=== PATIENT | male | born 1950 | race Caucasian/White ===

== ENCOUNTER 2017-11-12 03:15 | Emergency (ER) | payer MEDICARE ==
[2017-11-12] MEDS ORDERED: AMIODARONE 150MG/100ML BOLUS 150 MG/100 ML ML IV ONE (03:27)
[2017-11-12] MEDS ORDERED: LIDOCAINE IVP ONE (03:28)
--- NOTE | 2017-11-12 03:35 | Emergency Department Record ---
History of Present Illness - General Chief Complaint: Chest Pain Stated Complaint: CHEST PAIN Time Seen by Provider: 11/12/17 03:27 Source: Patient Mode of Arrival: Ambulatory Limitations: No limitations - History of Present Illness Initial Comments: 67 yo male presents to ED for evaluation of palpitations and chest discomfort symptoms that began several hours ago. Patient reports nausea and diaphoresis symptoms as well. Patient denies a history of similar symptoms previously. MD Complaint: Chest pain Onset/Timin -: Hour(s) Pain Location: Substernal Severity: Severe Consistency: Constant, Getting worse Improves With: Nothing Worsens With: Exertion, Movement Anginal Symptoms: Diaphoresis - Related Data Home Medications Medication Instructions Recorded Confirmed Last Taken No Home Med [NO HOME MEDS] 11/12/17 11/12/17 Unknown Allergies Allergy/AdvReac Type Severity Reaction Status Date / Time No Known Drug Allergies Allergy Verified 11/12/17 03:24 Travel Screening - Travel/Exposure Within Last 30 Days Have you traveled within the last 30 days?: No Review of Systems Constitutional: Denies: Chills, Fever, Malaise, Night sweats Eyes: Denies: Eye discharge, Eye pain ENT: Denies: Congestion, Ear pain Respiratory: Denies: Cough, Dyspnea Cardiovascular: Reports: Chest pain, Palpitations. Denies: Edema, Orthopnea Endocrine: Denies: Fatigue, Heat or cold intolerance Gastrointestinal: Denies: Abdominal pain, Nausea, Vomiting Genitourinary: Denies: Incontinence, Retention Musculoskeletal: Denies: Arthralgia, Back pain, Gout, Joint swelling Skin: Denies: Bruising, Change in color Neurological: Denies: Abnormal gait, Confusion, Headache Psychiatric: Denies: Anxiety Hematological/Lymphatic: Denies: Anemia, Blood Clots Past Medical History - SOCIAL HISTORY Smoking Status: Light tobacco smoker (<10/day) Alcohol Use: None Drug Use: Occasional Drug Use Detail:: Marijuana - RESPIRATORY Hx Respiratory Disorders: Yes Hx Asthma: Yes - CARDIOVASCULAR Hx Cardio Disorders: Yes Hx Hypertension: Yes - NEURO Hx Neuro Disorders: No - GI Hx GI Disorders: No - Hx Genitourinary Disorders: No - ENDOCRINE Hx Endocrine Disorders: No - MUSCULOSKELETAL Hx Musculoskeletal Disorders: No - PSYCH Hx Psych Problems: No - HEMATOLOGY/ONCOLOGY Hx Hematology/Oncology Disorders: No Family Medical History Any Significant Family History?: Yes Hx Diabetes: Mother Hx Heart Disease: Father Physical Exam - General General Appearance: Alert, Oriented x3, Cooperative, Moderate distress Limitations: No limitations - Head Head exam: Atraumatic, Normocephalic, Normal inspection Head exam detail: negative: Abrasion, Contusion, Awan's sign, General tenderness, Hematoma, Laceration - Eye Eye exam: Normal appearance. negative: Conjunctival injection, Periorbital swelling, Periorbital tenderness, Scleral icterus - ENT Ear exam: negative: Auricular hematoma, Auricular trauma Nasal Exam: negative: Active bleeding, Discharge, Dried blood, Foreign body Mouth exam: negative: Drooling, Laceration, Muffled voice, Tongue elevation - Neck Neck exam: Normal inspection. negative: Meningismus, Tenderness - Respiratory Respiratory exam: Normal lung sounds bilaterally. negative: Rales, Respiratory distress, Rhonchi, Stridor - Cardiovascular Cardiovascular Exam: Tachycardia - GI/Abdominal GI/Abdominal exam: Soft. negative: Rebound, Rigid, Tenderness - Rectal Rectal exam: Deferred - exam: Deferred - Extremities Extremities exam: Normal inspection. negative: Calf tenderness, Pedal edema, Tenderness - Back Back exam: Denies: CVA tenderness (R), CVA tenderness (L) - Neurological Neurological exam: Alert, Oriented X3 - Psychiatric Psychiatric exam: Normal affect, Normal mood - Skin Skin exam: Normal color. negative: Abrasion Type of lesion: negative: abrasion Course Vital Signs 11/12/17 03:17 Pulse Rate 218 H Respiratory 24 Rate Blood Pressure 143/84 Pulse Ox 97 - Reevaluation(s) Reevaluation #1: 11/12/17 03:32 EKG: Ventricular tachycardia 217 Amiodarone 150 mg over 10 minutes ordered, Lidocaine 100 mg ordered over 1 minute. Reevaluation #2: 11/12/17 03:37 patient converted to NSR, labs sent for analysis, repeat EKG is being performed. Reevaluation #3: 11/12/17 03:45 Repeat EKG: Sinus tachycardia 114 Normal axis, normal intervals Borderline elevated II, III, AVF Reevaluation #4: 11/12/17 03:50 Case was discussed with Dr. Jack, will initiate transfer for STEMI at this time. Reevaluation #5: 11/12/17 03:[address] Jack, does not feel the patient is a STEMI at this time, will admit the patient to ICU for further evaluation. Does not recommend Heparin a this time. 11/12/17 04:09 Patient continues to be CP-free, pulse now 120, will initiate Amiodarone drip at 1 mg/minute pending bed placement and transfer. 11/12/17 04:12 Labs reviewed, WBC 17.4, BUN 31/Creatinine 1.4, AST/ALT 150/175 respectively. Troponin minimally elevated at 0.015. Medical Decision Making - Lab Data Result diagrams: 11/12/17 03:44 11/12/17 03:44 Critical Care Time Critical Care Time: Yes Total Critical Care Time: 45 Critical Care Time: Cardioversion of ventricular tachycardia, repeat EKG, consultation with interventionalist to exclude STEMI, arrangement for transfer to [facility] ICU Disposition Disposition: Transfer Clinical Impression: ST elevation (STEMI) myocardial infarction Qualifiers: Involved coronary artery: unspecified coronary artery Qualified Code(s): I21.3 - ST elevation (STEMI) myocardial infarction of unspecified site Disposition: Home, Self-Care Transfer To: [facility] Reason For Transfer: STEMI Accepting Physician: Lisa Time Discussed w/Accepting Physician: 03:55 Condition: (2) Stable Instructions: Chest Pain (ED) Forms: Patient Portal Access Time of Disposition: 03:55 Quality - Quality Measures Quality Measures: N/A - Blood Pressure Screening Does Patient Have Any of the Following: No Blood Pressure Classification: Pre-Hypertensive BP Reading Systolic Measurement: 143 Diastolic Measurement: 84 Screening for High Blood Pressure: < Pre-Hypertensive BP, F/U Documented > [ [id number]] Pre-Hypertensive Follow-up Interventions: Referral to alternative/primary care provider.
[2017-11-12] MEDS ORDERED: ASPIRIN 81 MG CHEWABLE TABLET PO ONE (03:43)
[2017-11-12 03:48] LABS: BASO % 0.1 % (0-6); EOS % 0.1 % (0-6); LYMPH % 6.6 % (16-45); MEAN CELL VOLUME 87.3 fl (81-97); MEAN CORPUSCULAR HEMOGLOBIN 29.6 pg (27-33); MEAN PLATELET VOLUME 10.3 fl (7.4-10.4); MONO % 7.3 % (0-9); PLATELET COUNT 337 K/uL (130-400); RED BLOOD COUNT 5.73 M/uL (4.40-5.70); RED CELL DISTRIBUTION WIDTH 14.9 % (11.5-14.5); WHITE BLOOD COUNT W/O DIFF 17.4 K/uL (4.2-12.2)
[2017-11-12 04:02] LABS: ALBUMIN 4.8 g/dL (4.0-5.0); BILIRUBIN,TOTAL 2.1 mg/dL (0.2-1.0); CREATININE 1.4 mg/dL (0.7-1.2); TOTAL PROTEIN 8.5 g/dL (6.6-8.7)
[2017-11-12 04:03] LABS: ALB/GLOB RATIO 1.3 (1.1-1.8)
[2017-11-12 04:04] LABS: CKMB 10.8 ng/mL (<6.73)
[2017-11-12] MEDS ORDERED: AMIODARONE 360MG/200ML MAINT 360 MG/200 ML ML IV ONE (04:06)
[2017-11-12 04:09] LABS: CKMB RELATIVE INDEX 10.1 % (0-4)
== END 2017-11-12 04:50 | disposition home or self-care (01) ==
LOC: ER 03:15
DX: I21.3 ST elevation (STEMI) myocardial infarction of unspecified site (principal); R11.2 Nausea with vomiting, unspecified; I10 Essential (primary) hypertension; F17.210 Nicotine dependence, cigarettes, uncomplicated
CPT/HCPCS: 99291 ×2; 96374; 96375; 82550; 82553; 80053; 84484; 85027; 93005; 93010; J0282 ×2; J3490